=== PATIENT | male | born 1990 | race Caucasian/White ===

== ENCOUNTER 2025-06-01 15:04 | Emergency (ER) | payer BC, SELFPAY ==
[2025-06-01] VITALS (14 sets, daily range): BP systolic 132–175; BP diastolic 84–105; PULSE 101–144; RESP 14–22; TEMP 36.6–36.7; O2SAT 96–100
--- NOTE | ~2025-06-01 | XR_ITS ---
EXAMINATION: XR chest 2V Exam Date/Time: 06/01/2025 15:21 CDT HISTORY: palpitations, PT STATES TACHYCARDIA AND SOB Comparison: None. RESULT: Lines, tubes, and devices: None. Lungs and pleura: Clear. Cardiomediastinal silhouette: Unremarkable. Other: No acute osseous or upper abdominal finding. IMPRESSION: No acute cardiopulmonary process. Reviewed, dictated and finalized at location K.
--- NOTE | 2025-06-01 15:14 | ECG_ITS ---
Test Date: 2025-06-01 15:14:44 Measurements Intervals [place] Rate: 140 P: 30 WI: 146 QRS: 42 QRSD: 84 T: 39 QT: 291 QTc: 445 Interpretive Statements SINUS TACHYCARDIA BASELINE ARTIFACT- I, II, III, AVR, AVL, AVF, V4-V6 ABNORMAL ECG No previous ECG available for comparison Electronically Signed On 06-01-2025 15:48:28 CDT by Owne Espinoza D.O.
[2025-06-01 15:22] LABS: Hematocrit 42.4 % (42.0-52.0); Hemoglobin 14.5 g/dL (14.0-18.0); Immature Granulocyte Percent A 0.3 % (0-0.5); Lymphocytes Absolute Auto 2.30 K/mm3 (0.9-3.2); Mean Corpuscular HGB Conc 34.2 g/dl (32-36); Mean Corpuscular Hemoglobin 28.9 pg (26-34); Mean Corpuscular Volume 84.6 fl (80-100); Nucleated Red Blood Cells Absolute Auto 0.000 K/mm3 (0.0-0.012); Nucleated Red Blood Cells Perc 0.0 % (0.0-0.2); Platelet Count Result 254 k/mm3 (150-375); Red Blood Count 5.01 M/mm3 (4.6-6.20); White Blood Count 7.6 K/mm3 (4.5-10.0)
[2025-06-01] MEDS: METOPROLOL TARTRATE INJ 5 MG/5 ML VIAL IV PUSH ×2 (15:32→16:38)
[2025-06-01] MEDS: SODIUM CHLORIDE 0.9% IV 500 ML 999 ML IV CONT (15:32)
[2025-06-01 15:48] LABS: Alanine Aminotransferase 85 U/L (6-50); Albumin Level 4.7 g/dL (3.5-5.1); Alkaline Phosphatase 70 U/L (38-126); Anion Gap 13 mmol/L (4-12); Aspartate Amino Transferase 49 U/L (17-59); Bilirubin,Total 0.6 mg/dL (0.2-1.3); Blood Urea Nitrogen 18 mg/dL (9-20); Calcium 8.8 mg/dL (8.4-10.2); Carbon Dioxide 21 mmol/L (22-30); Chloride 104 mmol/L (98-107); Estimated CRCL calculation 110 ml/min; Estimated Glomerular Filt Rate > 60; Glucose 129 mg/dL (65-110); INR 1.0; Lipase 107 U/L (23-300); Partial Thromboplastin Time 26.7 Seconds (22.3-36.8); Potassium 3.9 mmol/L (3.4-5.0); Prothrombin Time 13.5 Seconds (11.1-14.7); Sodium 138 mmol/L (137-145); Total Protein 8.0 g/dL (6.3-8.2)
[2025-06-01] MEDS: MAG HYDROX/AL HYDROX/SIMETH 30 ML UDC PO (15:52)
[2025-06-01] MEDS: FAMOTIDINE 20 MG/2 ML VIAL IV PUSH (15:52)
--- OUTSIDE RECORDS SUMMARY | 2025-06-01 15:54 | XMS_ITS | Clinical Summary ---
Author Organization [facility] Address [address] [place] [address] Care Team Providers Care Bookstore Clerk Name Role Phone Patient, None Per Primary Care Provider Unavaila ble Source Comments This disclosure is being made pursuant to the [employer] program and maynot contain all information available regarding this patient.[facility] Allergies No known active allergies Medications omeprazole (PRILOSEC) 40 MG capsuleIndication s:Gastroesophagea l reflux disease, unspecified whether esophagitis present,Tachycard ia,Palpitations Take 1 (one) capsule by mouth every morning before breakfast. 30 capsule 04/12/2025 11:51 AM CDT 5 Active hydrOXYzine (ATARAX) 25 MG tabletIndications :Insomnia, unspecified type,Anxiety,Hear t palpitations Take 1 (one) tablet by mouth nightly as needed for Anxiety. 30 tablet 04/12/2025 11:51 AM CDT 5 Active Active Problems No known active problems Encounters Date Type Department Care Team Description 04/11/2025 10:30 AM CDT Office Visit [facility] [address] [place] [id number] Matt Mays PA-C Gastroesophageal reflux disease, unspecified whether esophagitis present (Primary Dx); Tachycardia; Palpitations 04/11/2025 10:23 AM CDT - 04/11/2025 11:59 PM CDT Hospital Encounter [facility] [address] [place] [id number] Matt Mays PA-C Gastroesophageal reflux disease, unspecified whether esophagitis present; Tachycardia; Palpitations Discharge Disposition: Home - Discharge to Home or Self Care 04/11/2025 Results Follow-Up [facility] [address], [place] [address] Matt Mays PA-C TSH, CBC and differential, Basic metabolic panel 04/11/2025 Travel from Last 3 Months Social History Tobacco Use Types Packs/Day Years Used Date Smoking Tobacco: Never Assessed PHQ-2 Answer Date Recorded PHQ-2 Total Score 0 04/11/2025 Sex and Gender Information Value Date Recorded Sex Assigned at Not on file Legal Sex Male 8:54 AM CDT Gender Identity Not on file Sexual Orientation Not on file Last Filed Vital Signs Vital Sign Reading Time Taken Comments Blood Pressure 136/90 04/11/2025 9:40 AM CDT Pulse 105 04/11/2025 9:40 AM CDT Temperature 36.7 C (98.1 F) 04/11/2025 9:40 AM CDT Respiratory Rate 20 04/11/2025 9:40 AM CDT Oxygen Saturation 96% 04/11/2025 9:40 AM CDT Inhaled Oxygen Concentration - - Weight 111 kg (244 lb 12.8 oz) 04/11/2025 9:40 A M CDT Height 177.8 cm (5' 10) 04/11/2025 9:40 AM CDT Body Mass Index 35.13 04/11/2025 9:40 AM CDT Plan of Treatment Health Maintenance Due Date Last Done Comments Lab-Cholesterol Screening 1992 Lab-Hepatitis C Screening 1992 Annual Wellness Visit 2010 Hepatitis B Vaccine (1 of 3 - 19+ 3-dose series) 2011 Tetanus/Pertussis Vaccine Teen/Adult (1 - Tdap) 2011 HPV Vaccine (9-26yo & Shared Decision 27-45yo) (1 - 3-dose SCDM series) 2019 COVID-19 Vaccine ( - 2023-2 5 season) 2024 Influenza Vaccine (#1) 2025 Zoster (Shingles) Vaccine 50 + (1 of 2) 2042 RSV Adult (1 - 1-dose 75+ series) 2067 HIB Vaccine Aged Out No longer eligi ble based on patient's age to complete this topic Hepatitis A Vaccine Aged Out No longe r eligible based on patient's age to complete this topic IPV Vaccine Aged Out No longer eligi ble based on patient's age to complete this topic Meningococcal Conjugate Vaccine Aged Out No longer eligible based on patient's age to complete this topic Pneumococcal Vaccines 0-49 yo Aged Out No longer eligible based on patient's age to complete this topic RSV < 20 Months Aged Out No longer el igible based on patient's age to complete this topic Procedures Procedure Name Priority Date/Time Associated Diagnosis Comments EKG 12-LEAD Routine 04/11/2025 11:13 AM CDT Gastroesophageal reflux disease, unspecified whether esophagitis present Tachycardia Palpitations BASIC METABOLIC PANEL STAT 04/11/2025 10:23 AM CDT Gastroesophageal reflux disease, unspecified whether esophagitis present Tachycardia Palpitations CBC AND DIFFERENTIAL STAT 04/11/2025 10:23 AM CDT Gastroesophageal reflux disease, unspecified whether esophagitis present Tachycardia Palpitations TSH STAT 04/11/2025 10:23 AM CDT Gastroesophageal reflux disease, unspecified whether esophagitis present Tachycardia Palpitations from Last 3 Months Results * EKG 12 lead (04/11/2025 11:13 AM CDT) Matt Mays PA-C ECG ORDERABLES Final Result Performing Organization Address City/State/[facility] Co de Phone Number [facility] [place] * CBC and differential (04/11/2025 10:23 AM CDT) WBC 5.16 4.00 - 11.00 10*3/uL 04/11/2025 10:42 AM CDT [facility] RBC 4.99 4.60 - 6.20 10*6/uL 04/11/2025 10:42 AM CDT [facility] HGB 14.7 14.0 - 18.0 g/dL 04/11/2025 10:42 AM CDT [facility] HCT 42.8 42.0 - 52.0 % 04/11/2025 10:42 AM CDT [facility] MCV 85.8 81.0 - 98.0 fL 04/11/2025 10:42 AM CDT [facility] MCH 29.5 27.0 - 34.0 pg 04/11/2025 10:42 AM CDT [facility] MCHC 34.3 31.5 - 36.0 g/dL 04/11/2025 10:42 AM CDT [facility] Platelets 216 150 - 450 10*3/uL 04/11/2025 10:42 AM CDT [facility] RDW-CV 12.3 9.0 - 14.5 % 04/11/2025 10:42 AM CDT [facility] NRBC Absolute 0.00 0.0 10*3/uL 04/11/2025 10:42 AM CDT [facility] MPV 10.9 8.7 - 12.6 fL 04/11/2025 10:42 AM CDT [facility] Differential Type AUTO 025 10:42 AM CDT [facility] Basophils Absolute 0.07 0.00 - 0.10 10*3/uL 04/11/2025 10:42 AM CDT [facility] Eosinophils Absolute Count 0.08 0.00 - 0.50 10*3/uL 04/11/2025 10:42 AM CDT [facility] Lymphocytes Absolute 1.52 1.20 - 4.00 10*3/uL 04/11/2025 10:42 AM CDT [facility] Monos Absolute 0.31 0.00 - 1.00 10*3/uL 04/11/2025 10:42 AM CDT [facility] Neutrophils Absolute 3.17 1.50 - 8.00 10*3/uL 04/11/2025 10:42 AM CDT [facility] Basophils % 1.4 % 04/11/2025 10:42 AM CDT [facility] Eosinophils Relative % 1.6 % 04/11/2025 10:42 AM CDT [facility] Immature Granulocytes Absolute 0.01 0.00 - 0.09 10*3/uL 04/11/2025 10:42 AM CDT [facility] Immature Granulocytes% 0.2 0.0 - 0.6 % 04/11/2025 10:42 AM CDT [facility] Lymphocytes % 29.5 % 04/11/2025 10:42 AM CDT [facility] Monocyte % 6.0 % 04/11/2025 10:42 AM CDT [facility] Neutrophil % 61.3 % 04/11/2025 10:42 AM CDT [facility] Comment:Performed at [facility] [address] [address] Whole Blood 04/11/2025 10:2 3 AM CDT 04/11/2025 10:24 AM CDT Matt Mays PA-C LAB BLOOD ORDERABLES Final Re sult [facility] [address] [facility] [place], [place] [phone] PATHOLOGY LABORATORY - [address] [address] * TSH (04/11/2025 10:23 AM CDT) TSH 1.310 0.270 - 4.200 u[IU]/mL 04/11/2025 11:06 AM CDT [facility] - [facility] Comment:Performed at [facility] [address] [address] Serum 04/11/2025 10:2 3 AM CDT 04/11/2025 10:24 AM CDT Matt Mays PA-C LAB BLOOD ORDERABLES Final Re sult [facility] [address] [facility] [place], [place] [phone] PATHOLOGY LABORATORY - [address] [place] [address] * (ABNORMAL) Basic metabolic panel (04/11/2025 10:23 AM CDT) Sodium 140 136 - 145 mmol/L 04/11/2025 11:06 AM CDT [facility] Potassium 4.5 3.5 - 5.1 mmol/L 04/11/2025 11:06 AM CDT [facility] Chloride 105 98 - 107 mmol/L 04/11/2025 11:06 AM CDT [facility] CO2 26 22 - 29 mmol/L 04/11/2025 11:06 AM CDT [facility] Glucose 103(H) 70 - 99 mg/dL 04/11/2025 11:06 AM CDT [facility] BUN 17 6 - 20 mg/dL 04/11/2025 11:06 AM CDT [facility] Creatinine 0.95 0.8 - 1.3 mg/dL 04/11/2025 11:06 AM CDT [facility] Calcium 9.2 8.5 - 10.5 mg/dL 04/11/2025 11:06 AM CDT [facility] - [facility] Anion Gap 9 mmol/L 04/11/2025 11:06 AM CDT [facility] BUN/Creatinine Ratio 17.9 04/11/2025 11:06 AM CDT [facility] Osmolality Calculated 292 275 - 295 mosm/kg 04/11/2025 11:06 AM CDT [facility] Creatinine Based eGFR 109 mL/min/[1. 73_m2] 04/11/2025 11:06 AM CDT [facility] Comment: GFR >90 Normal or elevated GFR. CKD-EPI 2020 formula used to calculate eGFR, effective [id number] Performed at [facility] [place] [address] [facility] [place] [address] [place] [address] Serum 04/11/2025 10:2 3 AM CDT 04/11/2025 10:24 AM CDT us Matt Mays PA-C LAB BLOOD ORDERABLES Final Re sult [facility] [address] [facility]. [place] [phone] PATH[facility]ORY - [place] [address] [facility] [place] [address] [place] [address] from Last 3 Months Insurance [employer] OF STATE [address] [place] [address] Care Teams Bookstore Clerk Relationship Specialty Start Date End Date Patient, None Per PCP - General 04/11/25
--- OUTSIDE RECORDS SUMMARY | 2025-06-01 15:54 | XMS_ITS | Encounter Summary ---
Author Organization [facility] Address [address] [place] [address] Care Team Providers Care Hoop Punch And Coiler Operator Name Role Phone Patient, None Per Primary Care Provider Unavaila ble Encounter Details Date Type Department Care Team (Late st Contact Info) Description 04/11/2025 Results Follow-Up [facility] [address] [place] [address] Matt Mays, PACecilC [address] [place] [address] TSH, CBC and differential, Basic metabolic panel Social History Tobacco Use Types Packs/Day Years Used Date Smoking Tobacco: Never Assessed PHQ-2 Answer Date Recorded PHQ-2 Total Score 0 04/11/2025 Sex and Gender Information Value Date Recorded Sex Assigned at Not on file Legal Sex Male 8:54 AM CDT Gender Identity Not on file Sexual Orientation Not on file documented as of this encounter Plan of Treatment Not on file documented as of this encounter Visit Diagnoses Diagnosis Insomnia, unspecified type- Primary Anxiety Anxiety state, unspecified Heart palpitations Palpitations documented in this encounter Care Teams Hoop Punch And Coiler Operator Relationship Specialty Start Date End Date Patient, None Per PCP - General 04/11/25 documented as of this encounter
--- OUTSIDE RECORDS SUMMARY | 2025-06-01 15:54 | XMS_ITS | Clinical Summary ---
Author Organization [facility] Address [address] [place] [address] Phone Care Team Providers Care Sea Captain Name Role Phone Provider, None Primary Care Provider Unavailabl e Allergies No known active allergies Medications pantoprazole (PROTONIX) 40 MG Tablet Delayed Response TAKE ONE TABLET BY MOUTH ONCE DAILY 90 Tab 8 Active Additional Information Patient not taking.Reported on 05/20/2024 naproxen (NAPROSYN) 500 MG Tablet Take 1 Tablet by mouth 2 times daily (with meals). 30 Tablet 3 Active Additional Information Patient not taking.Reported on 05/20/2024 dexamethasone (Decadron) 4 MG Tablet Take 1 Tablet by mouth 2 times daily. 10 Tablet 4 Active Active Problems Problem Noted Date Diagnosed Date Irritable bowel syndrome with diarrhea 7 GERD (gastroesophageal reflux disease) Immunizations Immunization Administration Dates Next Due TD VACCINE 04/15/2017,10/17/2006 Family History Medical History Relation Name Comments Hypertension Father Hypertension Mother Relation Name Status Comments Father Alive Mother Alive Social History Tobacco Use Types Packs/Day Years Used Date Smoking Tobacco: Never Tobacco Cessation:Counseling Given: No Alcohol Use Standard Drinks/Week Comments Yes 0 (1 standard drink = 0.6 oz pur e alcohol) occassionally Sexually Active Control Partners Comments Never Sex and Gender Information Value Date Recorded Sex Assigned at Not on file Legal Sex Male 7:30 PM CDT Gender Identity Not on file Sexual Orientation Not on file Last Filed Vital Signs Vital Sign Reading Time Taken Comments Blood Pressure 111/75 05/21/2024 12:00 AM CDT Pulse 114 05/21/2024 12:15 AM CDT Temperature 39.4 C (102.9 F) 05/20/2024 11:15 PM CDT Respiratory Rate 18 05/21/2024 12:15 AM CDT Oxygen Saturation 97% 05/21/2024 12:15 AM CDT Inhaled Oxygen Concentration - - Weight 104.3 kg (230 lb) 05/20/2024 11:15 PM CDT Height 177.8 cm (5' 10) 05/20/2024 11:15 PM CDT Body Mass Index 33 05/20/2024 11:15 PM CDT Plan of Treatment Health Maintenance Due Date Last Done Comments Hepatitis C Virus (HCV) Screening 1992 TdaP Immunization 1992 Hepatitis B Immunization (1 of 3 - 19+ 3-dose series) 2011 Human Papillomavirus (HPV) Immunization (1 - 3-dose SCDM series) 2019 SARS-COV-2 Immunization ( season) 2024 01/29/2021, 12/30/2020 Influenza Immunization (#1) 2025 Respiratory Syncytial Virus (RSV) Immunization (Adult) (1 - 1-dose 75+ series) 2067 Meningococcal Immunization (ACWY) Aged Out No longer eligible b ased on patient's age to complete this topic Pneumococcal Immunization Combined Aged Out No longer eligible b ased on patient's age to complete this topic Rotavirus Immunization Aged Out No lo nger eligible based on patient's age to complete this topic Insurance [facility] Care Teams Sea Captain Relationship Specialty Start Date End Date Provider, None [place] PCP - General 05/20/24
--- OUTSIDE RECORDS SUMMARY | 2025-06-01 15:54 | XMS_ITS | Clinical Summary ---
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 No 04/01/2025 Food Access & Nutrition Answer Date Rec orded Do you have access to a vari ety of food including fruits and vegetables? Yes 04/01/2025 Access to Healthcare Answer Date Record ed Within the last 3 months, ho w many times did you visit the emergency department for your medical care? 0 04/01/2025 Health Literacy Answer Date Recorded How often do you need to hav e someone help you when you read instructions, pamphlets, or other written material from your doctor or pharmacy? Never 04/01/2025 Caregiver: How often do you need to have someone help you when you read instructions, pamphlets, or other written material from your doctor or pharmacy? Not on file 04/01/2025 Financial Risk Answer Date Recorded How hard is it for you to pa y for the very basics like food, housing, medical care, and air conditioning / heating? Not very hard 04/01/2025 Transportation Answer Date Recorded Has the lack of transportati on kept you from meetings, work, or from getting things needed for daily living? No Has the lack of transportati on kept you from medical appointments or from getting medications? No 04/01/2025 Social Isolation Answer Date Recorded How often do you feel lonely or isolated from th ose around you? Never 04/01/2025 Food Risk Answer Date Recorded Within the past 12 months we worried whether our food would run out before we got money to buy more. Never true 04/01/2025 Within the past 12 months th e food we bought just didn't last and we didn't have money to get more. Never true 04/01/2025 Sex and Gender Information Value Date Recorded Sex Assigned at Not on file Legal Sex Male 3:30 PM EDT Gender Identity Not on file Sexual Orientation Not on file Obstetrics History Last Filed Vital Signs Vital Sign Reading Time Taken Comments Blood Pressure 128/84 04/02/2025 2:50 PM CDT Pulse 101 04/02/2025 2:50 PM CDT Temperature 36.5 C (97.7 F) 04/02/2025 2:50 PM CDT Respiratory Rate 18 04/02/2025 2:50 PM CDT Oxygen Saturation 99% 04/02/2025 2:50 PM CDT Inhaled Oxygen Concentration - - Weight 112 kg (247 lb 14.4 oz) 04/02/2025 2:50 P M CDT Height 178.4 cm (5' 10.25) 04/02/2025 2:50 PM C DT Body Mass Index 35.32 04/02/2025 2:50 PM CDT Plan of Treatment Upcoming Encounters Date Type Department Care Team (Late st Contact Info) Description 06/06/2025 9:00 AM CDT [facility] Visit [facility] [address] [place] [id number] Timo Miller PA [address] [place] [id number] Health Maintenance Due Date Last Done Comments COVID-19 Vaccine (#1) 1997 Hepatitis B Vaccines (1 of 3 - 19+ 3-dose series) 2011 Cholesterol Screening (Lipid Panel) 03/20/2025 HIV Screening 03/20/2025 Hepatitis C Screening 03/20/2025 Influenza Vaccine (#1) 2025 Social Influencers of Health Screening 04/01/2026 04/01/2025 DTaP,Tdap,and Td Vaccines (3 - Td or Tdap) 04/15/2027 04/15/2017, 10/17/2006 Depression Screening Completed 04/01/2025 HIB Vaccines Aged Out No longer eligi ble based on patient's age to complete this topic HPV Vaccines Aged Out No longer eligi ble based on patient's age to complete this topic Hepatitis A Vaccines Aged Out No long er eligible based on patient's age to complete this topic IPV Vaccines Aged Out No longer eligi ble based on patient's age to complete this topic MMR Vaccines Aged Out No longer eligi ble based on patient's age to complete this topic Meningococcal ACWY Vaccine Aged Out N o longer eligible based on patient's age to complete this topic Meningococcal B Vaccine Aged Out No l onger eligible based on patient's age to complete this topic Pneumococcal Vaccine: Pediatrics (0 to 5 Years) and At-Risk Patients (6 to 49 Years) Aged Out No longer eligible b ased on patient's age to complete this topic RSV Immunization Patients Under 20 months Aged Out No longer eligible b ased on patient's age to complete this topic Varicella Vaccines Aged Out No longer eligible based on patient's age to complete this topic Insurance [place]) Care Teams Wind Turbine Mechanic Relationship Specialty Start Date End Date Timo Miller PA [address] [place] [phone] PCP - General Family Medicine 03/19/25
[2025-06-01 15:57] LABS: Troponin I < 0.012 ng/mL (0.000-0.034)
[2025-06-01 16:17] LABS: Thyroid Stimulating Hormone Reflex 0.896 uIU/mL (0.465-4.68)
--- NOTE | 2025-06-01 17:21 | ED_ITS ---
HPI - Arrhythmia/Palpitations General Chief Complaint: Arrhythmia/Palpitations Stated Complaint: Lightheaded, HR elevated Time Seen by Provider: 06/01/25 15:10 Source: patient Limitations: no limitations History of Present Illness HPI narrative: 34-year-old otherwise healthy here with the complaints of sudden onset of dizziness, elevated heart rate. Patient states that his right hand rate ranges from 100 to 110 on a regular basis and while he was climbing the stairs his heart rate shot up to 140. Denies having any chest pain but he called mild discomfort. He denies any fever or chills no history of nausea vomiting and diarrhea. MD complaint: rapid heart beat Duration: constant Severity: moderate Context: occurred during exertion Associated symptoms: denies other symptoms Related Data Allergies Allergy/AdvReac Type Severity Reaction Status Date / Time No Known Allergies Allergy Verified 06/01/25 15:31 Review of Systems 2 Review of Systems: All systems reviewed & are unremarkable except as noted in HPI and below Constitutional: Constitutional: Reports no additional constitutional complaints Eyes: Eyes: Reports no additional eye complaints ENT: Reports system reviewed and no additional complaints, except as documented Cardiovascular: Cardiovascular: Reports as per HPI Respiratory: Respiratory: Reports no additional respiratory complaints Gastrointestinal: Gastrointestinal: Reports no additional gastrointestinal complaints Genitourinary: Genitourinary: Reports no additional male genitourinary complaints Musculoskeletal: Musculoskeletal: Reports no additional musculoskeletal complaints Exam 2 Narrative: GENERAL: Well-appearing, well-nourished, and in no acute distress. HEAD: Normocephalic, atraumatic. EYES: PERRLA and EOMI. ENT: Nares clear, no rhinorrhea or epistaxis. Mucous membranes moist. NECK: Supple. CHEST: Clear to auscultation. No respiratory distress. HEART: Tachycardia. No murmur heard. Normal peripheral pulses. ABDOMEN: Soft, nontender, nondistended, normal active bowel sounds. Obese abdomen EXTREMITIES: Normal range of motion. No edema. SKIN: Warm, dry, no rash. NEURO: No focal deficits. Alert and oriented x3. PSYCH: Normal mood and affect. Course Course Emergency Course: Patient upon arrival was in sinus tach up to 147 did give him a IV Lopressor which brought it down to 120s I repeated another 5 mg of Lopressor which brought his heart rate to 80s and 90s. His blood pressure has improved. I did inform him about his lab work, EKG and x-ray findings. Recommended him to avoid caffeinated beverages. Follow with a technician support engineer. And he feels comfortable going home. Vital Signs Vital signs: Vital Signs Temperature 36.6 C 06/01/25 15:10 Pulse Rate 144 H 06/01/25 15:10 Respiratory Rate 17 06/01/25 15:10 Blood Pressure 158/96 H 06/01/25 15:10 Pulse Oximetry 100 06/01/25 15:10 Oxygen Delivery Room Air 06/01/25 15:10 Temperature 36.6 C 06/01/25 16:32 Pulse Rate 110 H 06/01/25 16:38 Respiratory Rate 14 06/01/25 16:32 Blood Pressure 175/86 H 06/01/25 16:32 Pulse Oximetry 98 06/01/25 16:32 Oxygen Delivery Room Air 06/01/25 15:10 MDM - Arrhythmia/Palpitations MDM Narrative Medical decision making narrative: 34-year-old otherwise healthy here with the elevated heart rate he is afebrile appears to be slightly anxious denies using any drugs. Patient states that his baseline heart rate is usually between 110 and 120 all the will do lab work, EKG. Will give Lopressor. Differential Diagnosis Differential diagnosis: Likely palpitations, anxiety, sinus tachycardia, artial fibrillation and supraventricular tachycardia Medical Records Attestation: I reviewed the patient's medical records. Lab Data Attestation: I reviewed the patient's lab results. 06/01/25 15:17 06/01/25 15:17 Labs: Lab Results 06/01/25 Range/Units 15:17 WBC 7.6 (4.5-10.0) K/mm3 RBC 5.01 (4.6-6.20) M/mm3 Hgb 14.5 (14.0-18.0) g/dL Hct 42.4 (42.0-52.0) % MCV 84.6 (80-100) fl MCH 28.9 (26-34) pg MCHC 34.2 (32-36) g/dl RDW 12.3 (11.5-14.5) % Plt Count 254 (150-375) k/mm3 MPV 10.5 H (7.4-10.4) fl Immature Gran % (Auto) 0.3 (0-0.5) % Neut % (Auto) 61.3 (45.5-73.1) % Lymph % (Auto) 30.1 (18.3-44.2) % [place] % (Auto) 6.4 (2.6-8.5) % Eos % (Auto) 1.0 (0-4.4) % Baso % (Auto) 0.9 (0.2-1.2) % Lymph # (Auto) 2.30 (0.9-3.2) K/mm3 [place] # (Auto) 0.5 (0.1-0.6) K/mm3 Eos # (Auto) 0.1 (0-0.3) K/mm3 Baso # (Auto) 0.1 (0.0-0.1) K/mm3 Abs Immat Gran (auto) 0.02 (0.00-0.031) K/mm3 Absolute Neuts (auto) 4.7 (1.3-6.7) K/mm3 Absolute Nucleated RBC 0.000 (0.0-0.012) K/mm3 Nucleated RBC % 0.0 (0.0-0.2) % PT 13.5 (11.1-14.7) Seconds INR 1.0 APTT 26.7 (22.3-36.8) Seconds Sodium 138 (137-145) mmol/L Potassium 3.9 (3.4-5.0) mmol/L Chloride 104 (98-107) mmol/L Carbon Dioxide 21 L (22-30) mmol/L Anion Gap 13 H (4-12) mmol/L BUN 18 (9-20) mg/dL Creatinine 1.09 (0.7-1.3) mg/dL Estim Creat Clear Calc 110 ml/min Estimated GFR > 60 (59 - ) Glucose 129 H (65-110) mg/dL Calcium 8.8 (8.4-10.2) mg/dL Total Bilirubin 0.6 (0.2-1.3) mg/dL AST 49 (17-59) U/L ALT 85 H (6-50) U/L Alkaline Phosphatase 70 (38-126) U/L Troponin I < 0.012 (0.000-0.034) ng/mL Total Protein 8.0 (6.3-8.2) g/dL Albumin 4.7 (3.5-5.1) g/dL Lipase 107 (23-300) U/L TSH (Reflex) 0.896 (0.465-4.68) uIU/mL Imaging Data Radiologist's impression: ITS Impressions Chest X-Ray 06/01/25 16:01 IMPRESSION: No acute cardiopulmonary process. ECG Data EKG #1: ECG completion date: 06/01/25 ECG completion time: 15:14 EKG Interpretation: tachycardia (140), no ST changes, normal QRS and NL axis Discharge Plan Discharge Clinical Impression: Palpitations, Sinus tachycardia Patient Disposition: Home Condition: Stable Instructions: Tachycardia (ED) Additional Instructions: Recommended him avoid caffeinated products. Take medicine as prescribed, follow-up with Cardiology Patient Language: Mongolian Prescriptions: New metoprolol succinate [Toprol XL] 25 mg tablet extended release 24 hr 12.5 mg PO DAILY Qty: 14 0RF Follow-up/Referrals: Owen Esipnoza DO [Physician] - PHYSICIAN NOT ON STAFF,NONSTAFF [Primary Care Provider] - Time of Disposition: 17:24
== END 2025-06-01 17:48 | disposition home or self-care (01) ==
PROVIDERS: Emergency Provider Family Medicine
DX: R00.2 Palpitations (principal); R00.0 Tachycardia, unspecified
CPT/HCPCS: 36415; 71046; 80053; 83690; 84443; 84484; 85025; 85610; 85730; 93005; 96374; 96375; 99284; A9270; J0616; J7040